=== PATIENT | male | born 1985 | race African-American/Black ===

== ENCOUNTER 2020-10-17 01:50 | Emergency (ER) | payer OTHER ==
[~2020-10-17] VITALS: Ht 182.9 cm; Wt 113.0 kg
[2020-10-17] MEDS ORDERED: LORAZEPAM 1MG TABLET PO ONE (02:30)
[2020-10-17 03:49] VITALS: BP 131/67
== END 2020-10-17 03:51 | disposition home or self-care (01) ==
LOC: ER 01:50
DX: F41.9 Anxiety disorder, unspecified (principal); J45.909 Unspecified asthma, uncomplicated
CPT/HCPCS: 99283